=== PATIENT | female | born 1985 | race Caucasian/White ===

== ENCOUNTER → 2021-09-14 | Outpatient (CLI) | payer BC ==
[~2021-09-14] MED LIST: COLACE 100MG C100 MG PO; HAIR SKIN NAILS; IBUPROFEN600 MG PO; NARATRIPTAN HC2.5 MG PO; NORCO 5-325 TA1 EACH PO; NURTEC ODT75 MG PO
[2021-09-14 11:18] LABS: HEMOGLOBIN 12.9 gm/dl (12.3-15.3); RED BLOOD COUNT 4.49 M/UL (4.00-5.10); WHITE BLOOD COUNT 5.9 K/UL (4.5-11.0)
== END ==
LOC: OPSV2 10:00
PROVIDERS: Obstetrics & Gynecology
DX: Z01.812 Encounter for preprocedural laboratory examination (principal); N84.0 Polyp of corpus uteri
CPT/HCPCS: 36415; 81001; 85025

== ENCOUNTER → 2021-09-29 | Day surgery (SDC) | payer BC ==
[~2021-09-29] MED LIST changes: +HYDROCODON-ACE1 EAC2 PO; +MUCINEX600 MG PO; +NAPROXEN 375 M375 MG PO; +UBRELVY100 MG PO; +ZOFRAN 4 MG TAB4 MG PO
== END | disposition home or self-care (01) ==
LOC: OR 06:24
DX: N84.0 Polyp of corpus uteri (principal); N93.9 Abnormal uterine and vaginal bleeding, unspecified; F41.9 Anxiety disorder, unspecified; E66.9 Obesity, unspecified; Z68.31 Body mass index [BMI] 31.0-31.9, adult; Z79.899 Other long term (current) drug therapy
CPT/HCPCS: 84703; J1100; J2405; J2704; J2795; J3010